=== PATIENT | male | born 1975 | race Caucasian/White ===

== ENCOUNTER 2018-02-20 07:30 | Outpatient (RCR) | payer OTHER, SELFPAY ==
--- NOTE | 2018-02-07 10:35 | HP.PTEVAL ---
Patient's Visit Information COLLIN ROSEN is a 42 year old M referred to Physical Therapy by Randal Cantu with a diagnosis of PAIN IN LEFT SHOULDER. Date of Evaluation: 02/07/18 Physical Therapist: Vincent Dos Santos PT, - Visit Plan Frequency: 2x /Week Duration: 2WEEKS Plan: RTC/SCAPULAR ,POSTURAL MODALTIES NEEDED - Subjective Subjective: This 42 y/o male presents to physical therapy with pain in left shoulder. Patient injuried left shoulder January 13 ,playing with nephew running fell on left shoulder. Patient had pain worsen over time ,tried ice /heat. Seen Dr yesterday ,x-rays done -. Patient has sorenes sleeping on left shoulder ,driving and exteme [place] activities. Denies parathesia/tingling.Patient was given predisone pack. SOCIAL: . 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 NEURO: intact,reflexes C5-6-7 2/3. PALAPTION: unremarkable. AROM: shoulder flexion/abduction 170 degrees,ER 90 degrees,IR 80 degrees. OP pressure no pain. MMT: RTC 4/5 ,deltoid 4/5,scapular middle traps 4-/5 ,shoulder extensors 4/5,posterior deltoid 4-/5. SCAPULAR-HUMERAL FUNCTION: 1:1. - Special Tests R Shoulder External Rotation Lag Test - RC Tear: Negative R Shoulder Supine Impingement Test - RC Tear: Negative R Shoulder Drop Sign - IS Test: Negative R Shoulder Empty Can - SS: Negative R Shoulder Belly Press - SupScap: Negative R Shoulder Neer - Impingement: Negative R Shoulder Julio Gopal - Impingement: Negative - Goals Goal 1:: Patient to be Independant with HEP Goal Time Frame: 2-4 Weeks Goal 2:: Independant with posture for JOB demands Goal Time Frame: 2-4 Weeks Goal 3:: No pain with all function activities and job demands Goal Time Frame: 2-4 Weeks Goal 4:: Patient to have 5/5 strength shoulder for all activities. - Rehabilitation Potential Physical Therapy Diagnosis: Patient injuried left shoulder by falling onto shoulder with impaired function with job demands Rehabilitation Potential: Good - Anticipated Interventions Patient/Client Instruction: Educate patient on: Condition, Plan of Care For the Purpose of:: To decrease pain, To improve muscle performance and motor function, To increase tolerance to activity/condition/position, To improve ability of physical actions for home/community/work/leisure, To improve health of tissue, To decrease soft tissue restriction, To improve ability to perform tasks related to life management Therapeutic Exercise to Include: Strength training, Postural training, Flexibilty training Comment: RTC /SCAPUALR For the Purpose of:: To decrease pain, To improve muscle performance and motor function, To improve ability to perform ADL's, To improve health of tissue, To decrease soft tissue restriction, To increase flexibility/ROM, To improve ability to perform tasks related to life management TENS: Yes IF ES: Yes Cryotherapy (ice pack, ice massage): Yes Thermo therapy (hot pack): Yes Ultrasound (thermal/non thermal): Yes For the Purpose of:: To decrease pain, To decrease swelling/inflammation, To improve nutrient delivery to tissue, To increase oxygenation perfusion, To improve health of tissue Thank you for the opportunity to evaluate your patient. For Medicare and Medicare HMO plans, please review the plan of care and approve it. It will need to be FAXED BACK to us at [phone] for Medicare purposes. Please let me know if there are questions or concerns regarding this plan of care. Physician Signature: Date:
--- NOTE | 2018-06-04 11:27 | HP.PT.NRP ---
HP - Discharge Summary (1) - Patient Information COLLIN ROSEN was seen in my office for initial evaluation on 02/07/18. The following Plan of Care was established for this patient: Initial Frequency: 2x /Week Initial Duration: 2WEEKS - Anticipated Interventions Patient/Client Instruction: Educate patient on: Condition, Plan of Care For the Purpose of:: To decrease pain, To improve muscle performance and motor function, To increase tolerance to activity/condition/position, To improve ability of physical actions for home/community/work/leisure, To improve health of tissue, To decrease soft tissue restriction, To improve ability to perform tasks related to life management Therapeutic Exercise to Include: Strength training, Postural training, Flexibilty training For the Purpose of:: To decrease pain, To improve muscle performance and motor function, To improve ability to perform ADL's, To improve health of tissue, To decrease soft tissue restriction, To increase flexibility/ROM, To improve ability to perform tasks related to life management TENS: Yes IF ES: Yes Cryotherapy (ice pack, ice massage): Yes Thermo therapy (hot pack): Yes Ultrasound (thermal/non thermal): Yes For the Purpose of:: To decrease pain, To decrease swelling/inflammation, To improve nutrient delivery to tissue, To increase oxygenation perfusion, To improve health of tissue This patient was last seen in our office 02/20/18. Pertinent comments regarding their Physical therapy will appear below: Patient seen for PT for left shoulder pain with PT focusing on RTC /postural strengthening,scapular ex's and modalities. Patient progressing well with decreasing pain for function. At this point I will be discontinuing this patient from physical therapy. I would be happy to see this patient again in the future if found appropriate by the physician. Thank you! Vincent Dos Santos, PT, Cert MDT, OCS
== END 2018-02-20 19:00 | disposition home or self-care (01) ==
LOC: PT 07:30
PROVIDERS: Family Provider Internal Medicine; PCP Internal Medicine; Visit Provider Physician Assistant
DX: M25.512 Pain in left shoulder (principal)
CPT/HCPCS: 97110; 97161